=== PATIENT | male | born 1990 | race Caucasian/White ===

== ENCOUNTER 2017-07-02 21:19 | Emergency (ER) | payer MEDICAID ==
[2017-07-02 21:34] VITALS: BP 129/74
[2017-07-02] MEDS ORDERED: Sulfamethox/Trimethoprim DS 800/160* TAB PO ONE ×2 (21:46)
--- NOTE | 2017-07-02 22:42 | UC ---
Skin Complaint HPI - HPI Summary HPI Summary: Patient presents with one week of painful red bumps in his bilateral axilla. He has been using warm compresses and a drawing salve with no improvement in symptoms. No fever. He has a history of injectable drug abuse. He is currently in [facility]. Reports his last use was over 2 months ago. - History of Current Complaint Chief Complaint: UCSkin Time Seen by Provider: 07/02/17 21:33 Stated Complaint: CYSTS UNDER ARMS PAINFUL Hx Obtained From: Patient Onset/Duration: Gradual Onset, Lasting Days, Still Present Timing: Constant Onset Severity: Moderate Current Severity: Moderate Pain Intensity: 5 Pain Scale Used: 0-10 Numeric Location: Discrete - Bilateral axilla Character: Swelling, Pain, Redness, Raised Aggravating Factor(s): Touch Alleviating Factor(s): Nothing Associated Signs & Symptoms: Positive: Rash, Tenderness. Negative: Nausea, Fever, Chills, Drainage, Red Streaks - Allergy/Home Medications Allergies/Adverse Reactions: Allergies Allergy/AdvReac Type Severity Reaction Status Date / Time No Known Allergies Allergy Verified 07/02/17 21:34 Home Medications: Home Medications Gabapentin CAP(*) [Neurontin 300 CAP(*)] 2 tab PO BID 07/02/17 [History Confirmed 07/02/17] Melatonin/Pyridoxine HCl (B6) [Melatonin 5 mg Tablet] 1 tab PO BEDTIME 07/02/17 [History Confirmed 07/02/17] Mirtazapine TAB* [Remeron TAB*] 2 tab PO BEDTIME 07/02/17 [History Confirmed ] Nicotine Polacrilex [Nicorette] 2 tab PO PRN MDD 4 07/02/17 [History] Sertraline* 100 mg PO DAILY 07/02/17 [History Confirmed 07/02/17] hydrOXYzine HCL TAB* [Atarax 25 MG TAB*] 1 tab PO BID 07/02/17 [History Confirmed 07/02/17] lamoTRIgine TAB(*) [Lamictal TAB(*)] 2 tab PO BEDTIME 07/02/17 [History Confirmed 07/02/17] Review of Systems Constitutional: Negative Skin: Rash Respiratory: Negative Cardiovascular: Negative Gastrointestinal: Negative All Other Systems Reviewed And Are Negative: Yes PMH/Surg Hx/FS Hx/Imm Hx Other GI/ History: Hepatitis C Psychological History: Bipolar Disorder - Surgical History Surgical History: Yes Surgery Procedure, Year, and Place: 2012 - Family History Known Family History: Negative: Hypertension - Social History Alcohol Use: None Substance Use Type: Heroin, Synthetic Drugs Substance Use Comment - Amount & Last Used: in [facility]po[facility] and meth inj Smoking Status (MU): Former Smoker Physical Exam Triage Information Reviewed: Yes Appearance: Well-Appearing, No Pain Distress, Well-Nourished Vital Signs: Initial Vital Signs Temp 99 F 07/02/17 21:25 Pulse 78 07/02/17 21:25 Resp 15 07/02/17 21:25 BP 129/74 07/02/17 21:25 Pulse Ox 97 07/02/17 21:25 Vital Signs Reviewed: Yes Eyes: Positive: Conjunctiva Clear ENT: Positive: Hearing grossly normal Neck: Positive: Supple Respiratory: Positive: No respiratory distress, No accessory muscle use Cardiovascular: Positive: Pulses Normal Abdomen Description: Positive: Soft Musculoskeletal: Positive: ROM Intact, No Edema Neurological: Positive: Alert Psychological: Positive: Age Appropriate Behavior Skin: Positive: rashes - SEVERAL <1CM RED, RAISED, TENDER, INDURATED LESIONS BILATERAL AXILLAE. NO FLUCTUANCE. Course/Dx - Diagnoses Provider Diagnoses: ABSCESS BILATERAL AXILLAE Discharge - Sign-Out/Discharge Documenting (check all that apply): Discharge - Discharge Plan Condition: Stable Disposition: HOME Prescriptions: Sulfamethox/Trimethoprim DS* [Bactrim DS 800/160 TAB*] 1 tab PO BID #17 tab Patient Education Materials: Abscess (ED) Referrals: Melecio Zheng NP [Primary Care Provider] - If Needed Additional Instructions: Abscesses are not yet ready for incision and drainage. Take the antibiotic twice daily for the full 10 days. WARM/HOT COMPRESSES/SOAKS AT LEAST 4 TIMES DAILY. No deodorant or shaving. OTC ibuprofen or Tylenol as needed for discomfort. Seek follow-up if you are not improving with the above treatment. - Billing Disposition and Condition Condition: STABLE Disposition: HOME
== END 2017-07-02 22:08 | disposition home or self-care (01) ==
LOC: MERGE 21:19 → UCEAST 21:19
DX: L02.412 Cutaneous abscess of left axilla (principal); L02.411 Cutaneous abscess of right axilla; B19.20 Unspecified viral hepatitis C without hepatic coma; F31.9 Bipolar disorder, unspecified; Z87.891 Personal history of nicotine dependence
CPT/HCPCS: 99202; A9270-GY; G0463